=== PATIENT | female | born 1965 | race Caucasian/White ===

== ENCOUNTER 2017-08-17 13:35 | Outpatient (CLI) | payer BC ==
--- NOTE | 2017-08-17 16:19 | ULT ---
THYROID ULTRASOUND: COMPARISON: 06/26/2014 and 07/10/2014 TECHNIQUE: Sagittal and transverse imaging of the thyroid gland is performed. FINDINGS: The thyroid isthmus measures 0.2 cm. The right thyroid lobe measures 1.9 x 4.5 x 1.5 cm. The left thyroid lobe measures 2.3 x 5.3 x 1.9 cm. There are multiple nodules and cysts throughout the thyroid gland. The largest solid nodule in the right thyroid lobe measures 2.1 x 1.3 x 1.6 cm. The largest solid nodule in the left thyroid lobe m easures 2.6 x 1.8 x 1.9 cm. A second slightly smaller nodule in the mid to upper aspect of the left thyroid lobe measures 1.5 x 1.7 x 2.4 cm. IMPRESSION: Multiple solid and cystic nodules throughout the thyroid gland. POS: [facility]
[2017-08-17 16:51] LABS: Free T3 2.59 pg/mL (1.71-3.71)
== END 2017-08-17 13:36 | disposition home or self-care (01) ==
LOC: SCSULT 13:35
PROVIDERS: ATTEND Otolaryngology Plastic Surgery within the Head & Neck
DX: E04.1 Nontoxic single thyroid nodule (principal); E04.8 Other specified nontoxic goiter; R53.83 Other fatigue
CPT/HCPCS: 36415; 76536; 81001; 84439; 84443; 84481; 87086

== ENCOUNTER 2017-10-05 08:43 | Outpatient (CLI) | payer BC ==
--- NOTE | 2017-10-05 10:29 | ULT ---
RENAL ULTRASOUND STANDARD: History: Urinary tract infection. History of stone. Comparison: None. FINDINGS: Right kidney measures 10.8 x 6.0 x 4.2 cm. Left kidney measures 10.8 x 5.1 x 5.5 cm. Pre void urinary bladder is 53 ml. There is a simple cyst right kidney measuring 1.5 x 1.4 x 1.4 cm interpolar and predominately endocy tic. There is a small calculus in the inferior pole left kidney, nonobstructive, in the distal roberto. No mass is appreciated. IMPRESSION: 1. Nonobstructive small calculus inferior pole left kidney measuring approximately 3-4 mm. 2. Simple cyst right kidney, predominately endocytic measuring up to 1.5 cm. POS: [facility]
== END 2017-10-05 08:44 | disposition home or self-care (01) ==
LOC: ULT 08:43
PROVIDERS: ATTEND Family Medicine
DX: N39.0 Urinary tract infection, site not specified (principal); N20.0 Calculus of kidney; N28.1 Cyst of kidney, acquired
CPT/HCPCS: 76770

== ENCOUNTER 2018-08-20 09:08 | Outpatient (CLI) | payer BC | END 2018-08-20 09:09 | disposition home or self-care (01) | LOC: BICMAMMO 09:08 | PROVIDERS: ATTEND Obstetrics & Gynecology | DX: Z12.31 Encounter for screening mammogram for malignant neoplasm of breast (principal) | CPT/HCPCS: 77063; 77067 ==

== ENCOUNTER 2018-10-25 08:44 | Outpatient (CLI) | payer BC ==
--- NOTE | 2018-10-25 12:10 | CT ---
CT ABDOMEN AND PELVIS WITH AND WITHOUT IV CONTRAST: Date: 10/25/18 HISTORY: 53-year-old female with history of renal calculi and cysts, hematuria. FINDINGS: Correlation is made with renal ultrasound of 10/05/17. The lung bases are clear. The liver, pancreas, and adrenal glands are normal. There are heterogeneous lesions in the spleen hill suring up to 2.0 cm. No complete filling is seen in the delayed images to suggest hemangiomas. Bilateral renal calculi are seen. No calculi are noted in the ureters or the urinary bladder. No hydr oureteronephrosis seen on either side. Postcontrast images demonstrate bilateral renal cysts. There i s normal contrast excretion into the pelvicaliceal systems, ureters, and the urinary bladder. No free air, free fluid, or lymphadenopathy seen in the abdomen or pelvis. There is no evidence of an eurysmal dilatation of the abdominal aorta. A normal appearing appendix is seen. There are degenerati ve changes in the spine. Patient is post hysterectomy and post cholecystectomy. IMPRESSION: 1. Indeterminate lesions in the spleen. A follow-up exam is recommended in 3 months. 2. Nonobstructing bilateral renal calculi. 3. Bilateral renal cysts. POS: [facility]
== END 2018-10-25 08:45 | disposition home or self-care (01) ==
LOC: SCSCT 08:44
PROVIDERS: ATTEND Urology
DX: N20.0 Calculus of kidney (principal); R31.29 Other microscopic hematuria; N28.1 Cyst of kidney, acquired; D73.89 Other diseases of spleen
CPT/HCPCS: 36415; 74178; 80048; 81001; 87086

== ENCOUNTER 2019-07-09 13:26 | Outpatient (CLI) | payer BC ==
[2019-07-09 13:59] LABS: Anion Gap 12 mmol/L (10-20); BUN (Urea Nitrogen) 11 mg/dL (9.8-20.1); Calc. Creatinine Clearance 0 mL/min (70-130); Calcium 9.6 mg/dL (7.8-10.44); Carbon Dioxide 28 mmol/L (22-29); Chloride 106 mmol/L (98-107); Estimated GFR-MDRD 75; Glucose 87 mg/dL (70-105); Potassium 3.6 mmol/L (3.5-5.1); Sodium 142 mmol/L (136-145); Uric Acid 3.5 mg/dL (2.6-6.0)
--- NOTE | 2019-07-09 14:06 | ULT ---
Exam: Bilateral renal ultrasound HISTORY: History of cysts and stones COMPARISON: CT of the abdomen and pelvis with and without contrast dated October 25, 2018 FINDINGS: Right kidney: There is a 1.6 x 1.4 x 1.3 cm cyst seen within the right mid kidney which is stable. Right kidney measurements: 10.2 x 5.4 x 4.6 cm Left kidney: There is a stable 9 mm cyst involving the superior pole left kidney. There is a stable 1 .7 cm cyst involving the posterior mid left kidney. Left kidney measurements: 11.3 x 5.4 x 5.9 cm Urinary bladder: Normal mucosa. IMPRESSION: Stable bilateral renal cysts. No hydronephrosis.
[2019-07-09 14:09] LABS: Bilirubin Negative (Negative); Blood, Urine Trace (Negative); Clarity Clear (Clear); Glucose, Urine (Dipstick) Negative (Negative); Leukocyte Negative (Negative); Nitrite Negative (Negative); Protein, Urine (Dipstick) Negative (Neg-Trace); Urobilinogen 0.2 mg/dL (Less than 2)
--- NOTE | 2019-07-09 14:12 | RAD ---
Exam: KUB HISTORY: Renal stones and cysts COMPARISON: CT the abdomen and pelvis dated October 25, 2018 FINDINGS: There is a moderate amount of retained stool within the colon slightly limiting image detai l. There is a 1.6 mm stone overlying the superior to mid left kidney likely corresponding to a small stone seen on image 24 of series [address] evaluation. Tiny nonobstructing calculi involving the superior pole of the left kidney are not well-seen on the current exam. No suspicious calcification is seen along the expected course of the renal collecting systems. The gallb ladder is surgically absent. No acute osseous abnormality is noted. IMPRESSION: Left nephrolithiasis. Moderate amount of retained stool within the colon slightly limits image detail.
[2019-07-09 14:24] LABS: Bacteria/HPF None Seen HPF (None Seen); RBC/HPF 0-3 HPF (0-3); Squamous Epithelial 0-3 HPF (0-3); WBC/HPF 0-3 HPF (0-3)
== END 2019-07-09 13:27 | disposition home or self-care (01) ==
LOC: SCSULT 13:26
PROVIDERS: ATTEND Urology
DX: N20.0 Calculus of kidney (principal); R31.29 Other microscopic hematuria; K59.00 Constipation, unspecified; N28.1 Cyst of kidney, acquired
CPT/HCPCS: 36415; 74018; 76770; 80048; 81001; 83970; 84550; 87086

== ENCOUNTER 2019-09-26 14:34 | Outpatient (CLI) | payer BC ==
--- NOTE | 2019-09-26 15:39 | MMO ---
Bilateral MAMMO Bilat Screen [facility]. CLINICAL HISTORY: Patient is 53 years old and is seen for screening. The patient has no family history of breast cancer. The patient has no personal history of cancer. The patient has a history of left Breast reduction at age 41 - benign, bilateral Excisional Biopsy - fibroadenoma and bilateral mastopexy. VIEWS: The views performed were: bilateral craniocaudal with tomosynthesis and bilateral mediolateral oblique with tomosynthesis. FILMS COMPARED: The present examination has been compared to prior imaging studies performed at [facility] on 09/23/2014, 12/22/2015, 02/15/2017 and 08/20/2018. This study has been interpreted with the assistance of computer-aided detection. MAMMOGRAM FINDINGS: The breasts are heterogeneously dense, which could obscure a lesion on mammography. There is a lobular mass measuring 9 millimeters seen in the anterior region of the left breast at 12 o'clock. In the right breast, there are no suspicious masses, calcifications or areas of architectural distortion. IMPRESSION: MASS IN THE LEFT BREAST REQUIRES ADDITIONAL EVALUATION. ADDITIONAL IMAGING. THE RESULTS OF THIS EXAM WERE SENT TO THE PATIENT. ACR BI-RADS Category 0 - Incomplete: Need additional imaging evaluation. [facility] will notify the patient of the need for additional imaging services. MAMMOGRAPHY NOTE: 1. A negative mammogram report should not delay a biopsy if a dominant of clinically suspicious mass is present. 2. Approximately 10% to 15% of breast cancers are not detected by mammography. 3. Adenosis and dense breasts may obscure an underlying neoplasm. Reported by: ERIKA DOUGLAS MD Electonically Signed: [id number]
== END 2019-09-26 14:35 | disposition home or self-care (01) ==
LOC: BICMAMMO 14:34
PROVIDERS: ATTEND Obstetrics & Gynecology
DX: Z12.31 Encounter for screening mammogram for malignant neoplasm of breast (principal); Z91.89 Other specified personal risk factors, not elsewhere classified; Z98.82 Breast implant status; Z98.890 Other specified postprocedural states; N63.20 Unspecified lump in the left breast, unspecified quadrant
CPT/HCPCS: 77063; 77067

== ENCOUNTER 2019-10-01 13:19 | Outpatient (CLI) | payer BC ==
--- NOTE | 2019-10-01 14:16 | MMO ---
Left Breast MAMMO Unilat Diag [facility]. CLINICAL HISTORY: Patient is 53 years old and is seen for additional evaluation requested from prior study. The patient has no family history of breast cancer. The patient has no personal history of cancer. The patient has a history of left Breast reduction at age 41 - benign, bilateral Excisional Biopsy - fibroadenoma and bilateral mastopexy. VIEWS: The views performed were: left craniocaudal spot compression with tomosynthesis; left mediolateral oblique spot compression with tomosynthesis; and left mediolateral with tomosynthesis. FILMS COMPARED: The present examination has been compared to prior imaging studies performed at [facility] on 02/15/2017, 08/20/2018, 09/26/2019 and 10/01/2019. This study has been interpreted with the assistance of computer-aided detection. MAMMOGRAM FINDINGS: The breast is heterogeneously dense, which could obscure a lesion on mammography. Finding 1: There is an equal density, lobular mass measuring 10 millimeters seen in the anterior region of the left breast at 1 o'clock. The mass was shown to be a cyst on ultrasound. Finding 2: 3 mm hypoechoic round nodule in the left breast 1:00 position is present on sonography exam only. Lesion seen incidentally in the left breast on the sonogram exam. Patient has history of fibradenoma removal. Lesion may reflect a complex cyst or small fibroadenoma. IMPRESSION: FINDING 1: MASS IN THE LEFT BREAST IS BENIGN. FINDING 2: FINDING IN THE LEFT BREAST IS PROBABLY BENIGN. FOLLOW-UP IN 6 MONTHS IS RECOMMENDED. RECOMMEND LEFT BREAST ULTRASOUND FOLLOWUP ONLY. THE FINDINGS AND RECOMMENDATIONS WERE DISCUSSED WITH THE PATIENT PRIOR TO HER LEAVING THE CENTER. THE RESULTS OF THIS EXAM WERE SENT TO THE PATIENT. ACR BI-RADS Category 3 - Probably benign finding - short interval follow-up suggested. [facility] will notify the patient of the need for additional imaging services. MAMMOGRAPHY NOTE: 1. A negative mammogram report should not delay a biopsy if a dominant of clinically suspicious mass is present. 2. Approximately 10% to 15% of breast cancers are not detected by mammography. 3. Adenosis and dense breasts may obscure an underlying neoplasm. Reported by: CASE LOAIZA MD Electonically Signed: [id number]
--- NOTE | 2019-10-01 14:30 | ULT ---
LEFT BREAST DIAGNOSTIC ULTRASOUND: INDICATIONS: Follow up mass in the left breast 1 o'clock position. FINDINGS: The lobulated mass-like abnormality in the 1 o'clock position, anterior depth, that was new from the comparison mammogram dated 09/26/2019, corresponds to a cluster of cysts on sonogram and measures 8.2 x 10.7 mm in size. Incidentally noted adjacent to this lesion, in the left breast 1 o'clock position, 2 cm from the nipp le, is a hypoechoic, nonvascular, oval lesion that has no mammographic correlate. This lesion may ref lect a complex cyst or a small fibroadenoma. A solid breast lesion is not entirely excluded. IMPRESSION: BI-RADS category 3 - probably benign. Recommend short term interval followup. The suspicious abnormality seen on the screening mammogram, dated 09/26/2019, is found to be a cluste r of cysts in the left breast 1 o'clock position, 1 cm from the nipple. Incidentally imaged on the left breast sonogram with no mammographic correlate is a 0.3 x 0.3 x 0.4 c m, oval, hypoechoic lesion which may reflect a small complicated cyst or possibly a small fibroadenom a. The patient has a history of fibroadenoma removals in the past. Would like to have this patient fo llow up in six months with a left breast sonogram to confirm stability or resolution of the small, 3 mm, hypoechoic lesion within the left breast 1 o'clock position, 2 cm from the nipple. The patient was counseled of the findings prior to leaving the breast center. POS: [facility]
== END 2019-10-01 13:20 | disposition home or self-care (01) ==
LOC: BICMAMMO 13:19
PROVIDERS: ATTEND Obstetrics & Gynecology
DX: N63.20 Unspecified lump in the left breast, unspecified quadrant (principal)
CPT/HCPCS: G0279

== ENCOUNTER 2020-12-30 09:07 | Outpatient (CLI) | payer BC | END 2020-12-30 09:08 | disposition home or self-care (01) | LOC: BICMAMMO 09:07 | PROVIDERS: ATTEND Obstetrics & Gynecology | DX: N64.59 Other signs and symptoms in breast (principal); E04.2 Nontoxic multinodular goiter | CPT/HCPCS: 77066; G0279 ==

== ENCOUNTER 2021-08-23 08:52 | Outpatient (CLI) | payer BC | END 2021-08-23 08:53 | disposition home or self-care (01) | LOC: BICULT 08:52 | PROVIDERS: ATTEND Obstetrics & Gynecology | DX: R92.8 Other abnormal and inconclusive findings on diagnostic imaging of breast (principal); N63.21 Unspecified lump in the left breast, upper outer quadrant ==